=== PATIENT | female | born 1985 | race African-American/Black ===

== ENCOUNTER 2021-12-17 10:47 | Emergency (ER) | payer OTHER, MEDICAID ==
[~2021-12-17] VITALS: Ht 172.7 cm; Wt 113.0 kg
[2021-12-17 13:20] LABS: CHLORIDE 108 mEq/L (98-107)
[2021-12-17 13:24] LABS: BASOPHILS % 0.4 % (0.0-2.0); HEMATOCRIT. 42.2 % (36.0-48.0); HEMOGLOBIN. 13.6 g/dL (12.0-16.0); LYMPHOCYTES % 38.7 % (20.0-50.0); MEAN CORPUSCULAR HEMOGLOBIN 26.9 pg (28.0-32.0); MEAN CORPUSCULAR VOLUME 83.6 fL (81.0-99.0); MEAN PLATELET VOLUME 10.4 fl (7.4-10.4); MONOCYTES % 7.2 % (2.0-8.0); NEUTROPHILS % 51.7 % (40.0-76.0); PLATELET 142 x1000/uL (130-400); RED BLOOD CELL COUNT 5.05 mill/uL (4.2-5.4); RED CELL DISTRIBUTION WIDTH 14.5 % (11.6-14.6)
[2021-12-17 13:28] LABS: HCG SCREEN NEGATIVE
[2021-12-17 14:06] VITALS: BP 163/85
== END 2021-12-17 14:09 | disposition home or self-care (01) ==
LOC: ER 10:47
DX: R00.2 Palpitations (principal); I10 Essential (primary) hypertension; I48.20 Chronic atrial fibrillation, unspecified; Z79.01 Long term (current) use of anticoagulants
CPT/HCPCS: 36415; 80053; 84443; 84703; 85025; 93005; 99284